=== PATIENT | female | born 1960 ===

== ENCOUNTER 2017-10-24 22:22 | Emergency (ER) | payer OTHER ==
[~2017-10-24] VITALS: Ht 160 cm; Wt 76.7 kg
[2017-10-24 22:33] VITALS: Ht 160 cm; Wt 76.7 kg
[2017-10-25 01:34] VITALS: BP 141/76
== END 2017-10-25 01:34 | disposition home or self-care (01) ==
LOC: ED 22:22
DX: S16.1XXA Strain of muscle, fascia and tendon at neck level, initial encounter (principal); S09.90XA Unspecified injury of head, initial encounter; R11.2 Nausea with vomiting, unspecified; J45.909 Unspecified asthma, uncomplicated; W20.8XXA Other cause of strike by thrown, projected or falling object, initial encounter; Y93.89 Activity, other specified; Y99.8 Other external cause status; Y92.89 Other specified places as the place of occurrence of the external cause
CPT/HCPCS: J1885